=== PATIENT | female | born 1995 | race Caucasian/White ===

== ENCOUNTER 2018-01-16 07:14 | Emergency (ER) | payer SELFPAY ==
[~2018-01-16] VITALS: Ht 167.6 cm; Wt 59.9 kg
[2018-01-16 08:27] VITALS: BP 131/72
--- NOTE | 2018-01-16 08:36 | Emergency Room Report ---
History of Present Illness General Chief Complaint: Female Urogenital Problems Source: Patient Present Illness HPI Patient presents with vaginal bleeding after initial sexual encounter. She states she's lost a lot of blood. She's said there are also clots that she is passing. She has slight abdominal cramping at this time. Her last period was normal for her. She's never had a gynecologic exam. The bleeding slowed down. She denies fevers or chills or dysuria. No foreign object inserted. No dizziness, prior bleeding disorders, dyspnea, NVD, change in bowels, rashes, headache. No prior medical problems. Allergies: Coded Allergies: No Known Allergies (Unverified , 01/16/18) Patient History Past Medical History: see triage record Social History: Denies: smoking Social History Narrative from [facility] - studying [place] in [place] Last Menstrual Period: Now Now: No Reviewed Nursing Documentation: PMH: Agreed; PSxH: Agreed Nursing Documentation-PMH Past Medical History: No Stated History Review of Systems All Other Systems: negative except mentioned in HPI Physical Exam Vital Signs Date Time Temp Pulse Resp B/P (MAP) Pulse Ox O2 Delivery O2 Flow Rate FiO2 01/16/18 08:13 98.6 84 20 131/72 99 Room Air Sp02 EP Interpretation: reviewed, normal General Appearance: well appearing, no apparent distress, GCS 15 Head: normocephalic, atraumatic Eyes: bilateral eye normal inspection, bilateral eye PERRL ENT: hearing grossly normal, normal voice, moist mucus membranes Neck: full range of motion, supple Respiratory: lungs clear, no respiratory distress, speaking full sentences Cardiovascular #1: regular rate, rhythm Cardiovascular #2: 2+ radial (L) Gastrointestinal: normal bowel sounds, non tender, soft Genitourinary: no CVA tenderness, bladder normal, ext genitalia/vag normal - with some blood, os closed, other - clot removed, ooze of fresh blood near cervix Musculoskeletal: digits/nails normal, gait/station normal, normal range of motion Neurologic: alert, normal gait, grossly normal Psychiatric: mood/affect normal Skin: no rash - no pallor Medical Decision Making Diagnostic Impression: Primary Impression: Vaginal laceration Qualified Codes: S31.41XA - Laceration without foreign body of vagina and vulva, initial encounter ER Course Patient presents with vaginal bleeding after initial sexual encounter. Differential includes hymenal laceration, vaginal laceration amongst others. She states the bleeding is improved. She needs at least an external vaginal exam. Also a CBC will be obtained and a urinalysis and test. The patient will be given a dose of Tylenol. Fresh bleeding. Packed by me. Dr. Alvarenga contacted @ 9:25. Dr. Garcias will be in. Labs with slight elevated WBC, normal H/H. CMP unremarkable. INR essentially normal. Dr. Garcias sutured laceration. Bleeding controlled. Rocephin given. Patient ambulatory and improved. Patient stable for outpatient treatment and observation. Laboratory Tests Test 01/16/18 08:15 01/16/18 08:40 Urine Color Red Urine Appearance Cloudy Urine pH 6.5 (4.5-8.0) Urine Specific [place] 1.020 (1.005-1.035) Urine Protein 3+ (NEGATIVE) H Urine Glucose (UA) Negative (NEGATIVE) Urine Ketones 1+ (NEGATIVE) H Urine Blood 5+ (NEGATIVE) H Urine Nitrite Negative (NEGATIVE) Urine Bilirubin Negative (NEGATIVE) Urine Urobilinogen 4 MG/DL (0.0-1.0) H Urine Leukocyte Esterase 2+ (NEGATIVE) H Urine RBC Tntc /HPF (0 - 2) H Urine WBC 2-4 /HPF (0 - 2) Urine Squamous Epithelial Cells Few /LPF (NONE/OCC) Urine Bacteria Occasional /HPF (NONE) Urine HCG, Qualitative Negative (NEGATIVE) White Blood Count 10.9 K/UL (4.8-10.8) H Red Blood Count 4.39 M/UL (4.20-5.40) Hemoglobin 12.9 G/DL (12.0-16.0) Hematocrit 38.3 % (37.0-47.0) Mean Corpuscular Volume 87 FL (80-99) Mean Corpuscular Hemoglobin 29.3 PG (27.0-31.0) Mean Corpuscular Hemoglobin Concent 33.6 G/DL (32.0-36.0) Red Cell Distribution Width 10.7 % (11.6-14.8) L Platelet Count 311 K/UL (150-450) Mean Platelet Volume 6.3 FL (6.5-10.1) L Neutrophils (%) (Auto) 73.0 % (45.0-75.0) Lymphocytes (%) (Auto) 17.0 % (20.0-45.0) L Monocytes (%) (Auto) 8.3 % (1.0-10.0) Eosinophils (%) (Auto) 1.0 % (0.0-3.0) Basophils (%) (Auto) 0.7 % (0.0-2.0) Prothrombin Time 12.1 SEC (9.30-11.50) H Prothrombin Time INR 1.2 (0.9-1.1) H Sodium Level 140 MMOL/L (136-145) Potassium Level 3.6 MMOL/L (3.5-5.1) Chloride Level 107 MMOL/L (98-107) Carbon Dioxide Level 26 MMOL/L (21-32) Anion Gap 7 mmol/L (5-15) Blood Urea Nitrogen 12 mg/dL (7-18) Creatinine 0.6 MG/DL (0.55-1.30) Estimate Glomerular Filtration Rate > 60 mL/min (>60) Glucose Level 92 MG/DL (74-106) Calcium Level 9.1 MG/DL (8.5-10.1) Total Bilirubin 1.1 MG/DL (0.2-1.0) H Direct Bilirubin 0.2 MG/DL (0.0-0.3) Aspartate Amino Transferase (AST) 16 U/L (15-37) Alanine Aminotransferase (ALT) 15 U/L (12-78) Alkaline Phosphatase 58 U/L (46-116) Total Protein 7.8 G/DL (6.4-8.2) Albumin 4.0 G/DL (3.4-5.0) Globulin 3.8 g/dL Albumin/Globulin Ratio 1.1 (1.0-2.7) Last Vital Signs Date Time Temp Pulse Resp B/P (MAP) Pulse Ox O2 Delivery O2 Flow Rate FiO2 01/16/18 13:22 98.0 65 21 109/89 99 Room Air Status: improved Disposition: HOME, SELF-CARE Condition: Improved Scripts Ibuprofen* (MOTRIN*) 600 Mg Tablet 600 MG ORAL Q6H PRN for For Pain, #20 TAB Prov: Contreras Medina MD 01/16/18 Cephalexin* (KEFLEX*) 500 Mg Capsule 500 MG ORAL EVERY 6 HOURS, #28 CAP Prov: Contreras Medina MD 01/16/18 Contreras Medina MD Jan 16, 2018 08:36
[2018-01-16 08:56] LABS: BASOPHILS % (AUTO) 0.7 % (0.0-2.0); HEMATOCRIT 38.3 % (37.0-47.0); HEMOGLOBIN 12.9 G/DL (12.0-16.0); MEAN CORPUSCULAR VOLUME 87 FL (80-99); MONOCYTES % (AUTO) 8.3 % (1.0-10.0); PLATELET COUNT 311 K/UL (150-450); RED BLOOD COUNT 4.39 M/UL (4.20-5.40); RED CELL DISTRIBUTION WIDTH 10.7 % (11.6-14.8); WHITE BLOOD COUNT 10.9 K/UL (4.8-10.8)
[2018-01-16 09:01] LABS: APPEARANCE,URINE CLOUDY; BILIRUBIN, URINE NEGATIVE (NEGATIVE); GLUCOSE, URINE (UA) NEGATIVE (NEGATIVE); KETONES,URINE 1+ (NEGATIVE); LEUKOCYTE ESTERASE ,URINE 2+ (NEGATIVE); NITRITE,URINE NEGATIVE (NEGATIVE); PH,URINE 6.5 (4.5-8.0); PROTEIN,URINE 3+ (NEGATIVE); UROBILINOGEN,URINE 4 MG/DL (0.0-1.0)
[2018-01-16 09:03] LABS: COLOR,URINE RED
[2018-01-16 09:10] LABS: INR 1.2 (0.9-1.1)
[2018-01-16 09:11] LABS: ANION GAP 7 mmol/L (5-15); BLOOD UREA NITROGEN 12 mg/dL (7-18); CALCIUM 9.1 MG/DL (8.5-10.1); CARBON DIOXIDE 26 MMOL/L (21-32); CHLORIDE 107 MMOL/L (98-107); CREATININE 0.6 MG/DL (0.55-1.30); POTASSIUM 3.6 MMOL/L (3.5-5.1); SODIUM 140 MMOL/L (136-145)
[2018-01-16 09:21] LABS: ALANINE AMINOTRANSFERASE 15 U/L (12-78); ALBUMIN/GLOBULIN RATIO 1.1 (1.0-2.7); ALKALINE PHOSPHATASE 58 U/L (46-116); ASPARTATE AMINO TRANSFERASE 16 U/L (15-37); BILIRUBIN,TOTAL 1.1 MG/DL (0.2-1.0)
[2018-01-16 09:24] LABS: BILIRUBIN,DIRECT 0.2 MG/DL (0.0-0.3)
--- NOTE | 2018-01-16 10:47 | Consultation ---
Consult Note Consult Note GYNECOLOGY CONSULT NOTE CC: Vaginal bleeding after first intercourse HPI: Patient is a 22yo G0 presenting after first intercourse with bleeding that began 1 hour after sex. Bleeding has been heavy with passage of clots. She reports a fleeting pain, but no pain currently. No dizziness or lightheadedness. No other complaints. Per ED physician, has been bleeding continuously with passage of bright red clots. Vagina has been packed. PMH: Denies PSH: Left knee surgery and left eyebrow mass removal, no other history Meds: None Allergies: NKDA OBHx: G0 GYNHx: Has not seen a FUR BLOWER OPERATOR yet. LMP starting today. No previous FUR BLOWER OPERATOR issues. SocHx: Drank last night, drinks a moderate amount, no smoking or drugs FamHx: Noncontributory Vitals: Physical Exam: Gen: NAD Neuro: CN2-12 intact grossly HEENT: MMM, OP clear CV: No tachycardia Pulm: No increased work of breathing Abd: Soft, NTND, no rebound or guarding Pelvic: NEFG, no masses or lesions. Packing removed, 2 gauze fully soaked with bright red blood. Approximately 75cc of blood total. Vaginal vault laceration on right approx 1.5cm with deeper component anteriorly. Cervix with some bloody discharge consistent with menses. No CMT. No other abnormalities. Skin: warm, dry MSK: FROM Labs: Test 01/16/18 08:15 01/16/18 08:40 Urine Color Red Urine Appearance Cloudy Urine pH 6.5 (4.5-8.0) Urine Specific [place] 1.020 (1.005-1.035) Urine Protein 3+ (NEGATIVE) H Urine Glucose (UA) Negative (NEGATIVE) Urine Ketones 1+ (NEGATIVE) H Urine Blood 5+ (NEGATIVE) H Urine Nitrite Negative (NEGATIVE) Urine Bilirubin Negative (NEGATIVE) Urine Urobilinogen 4 MG/DL (0.0-1.0) H Urine Leukocyte Esterase 2+ (NEGATIVE) H Urine RBC Tntc /HPF (0 - 2) H Urine WBC 2-4 /HPF (0 - 2) Urine Squamous Epithelial Cells Few /LPF (NONE/OCC) Urine Bacteria Occasional /HPF (NONE) Urine HCG, Qualitative Negative (NEGATIVE) White Blood Count 10.9 K/UL (4.8-10.8) H Red Blood Count 4.39 M/UL (4.20-5.40) Hemoglobin 12.9 G/DL (12.0-16.0) Hematocrit 38.3 % (37.0-47.0) Mean Corpuscular Volume 87 FL (80-99) Mean Corpuscular Hemoglobin 29.3 PG (27.0-31.0) Mean Corpuscular Hemoglobin Concent 33.6 G/DL (32.0-36.0) Red Cell Distribution Width 10.7 % (11.6-14.8) L Platelet Count 311 K/UL (150-450) Mean Platelet Volume 6.3 FL (6.5-10.1) L Neutrophils (%) (Auto) 73.0 % (45.0-75.0) Lymphocytes (%) (Auto) 17.0 % (20.0-45.0) L Monocytes (%) (Auto) 8.3 % (1.0-10.0) Eosinophils (%) (Auto) 1.0 % (0.0-3.0) Basophils (%) (Auto) 0.7 % (0.0-2.0) Prothrombin Time 12.1 SEC (9.30-11.50) H Prothrombin Time INR 1.2 (0.9-1.1) H Sodium Level 140 MMOL/L (136-145) Potassium Level 3.6 MMOL/L (3.5-5.1) Chloride Level 107 MMOL/L (98-107) Carbon Dioxide Level 26 MMOL/L (21-32) Anion Gap 7 mmol/L (5-15) Blood Urea Nitrogen 12 mg/dL (7-18) Creatinine 0.6 MG/DL (0.55-1.30) Estimate Glomerular Filtration Rate > 60 mL/min (>60) Glucose Level 92 MG/DL (74-106) Calcium Level 9.1 MG/DL (8.5-10.1) Total Bilirubin 1.1 MG/DL (0.2-1.0) H Direct Bilirubin 0.2 MG/DL (0.0-0.3) Aspartate Amino Transferase (AST) 16 U/L (15-37) Alanine Aminotransferase (ALT) 15 U/L (12-78) Alkaline Phosphatase 58 U/L (46-116) Total Protein 7.8 G/DL (6.4-8.2) Albumin 4.0 G/DL (3.4-5.0) Globulin 3.8 g/dL Albumin/Globulin Ratio 1.1 (1.0-2.7) PROCEDURE NOTE: Speculum inserted and laceration visualized. Area cleansed with betadine x 3. Area injected with 8cc of lidocaine 1%. Speculum removed and Migue retractors placed for aided visualization. Laceration repaired with interrupted figure of eight sutures of 2-0 Vicryl. Hemostasis was achieved. Patient tolerated procedure very well. Assessment/Plan Assessment/Plan: 22yo G0 with right vaginal vault laceration repaired at bedside without complication. - Recommend pelvic rest x 6w - No tampons, pads OK - Antibiotics will be given prior to discharge - Return precautions given Signed: MD Sakina Mackey Carla M.D. Jan 16, 2018 10:47
[2018-01-16] MEDS ORDERED: Betadine 4oz Bottle TOPIC ONE (10:51)
[2018-01-16] MEDS ORDERED: cefTRIAXone 1 GM in NS 55 ML IVPB ONE (11:45)
[2018-01-16] MEDS ORDERED: IBUPROFEN600 MG ORAL (13:12)
[2018-01-16] MEDS ORDERED: CEPHALEXIN500 MG ORAL (13:12)
[2018-01-16 13:22] VITALS: BP 109/89
== END 2018-01-16 13:26 | disposition home or self-care (01) ==
LOC: EMR 08:15 → CANBEDREQ 12:20 → EMR 13:26
DX: S31.41XA Laceration without foreign body of vagina and vulva, initial encounter (principal); N93.0 Postcoital and contact bleeding; X58.XXXA Exposure to other specified factors, initial encounter; Y92.89 Other specified places as the place of occurrence of the external cause
CPT/HCPCS: 36415; 80053; 81003; 81025; 82248; 85025; 85610; 96365; 99284; J0696; A4246